=== PATIENT | female | born 1950 | race Caucasian/White ===

== ENCOUNTER 2024-03-17 16:52 | Inpatient (IN) | payer OTHER ==
[2024-03-17] MEDS ORDERED: MORPHINE 4 MG/ML SYR ONE (18:18)
[2024-03-17] MEDS ORDERED: KETOROLAC 30 MG/ML INJ ONE (18:18)
[2024-03-17] MEDS ORDERED: ONDANSETRON 4 MG/2 ML VIAL ONE (18:18)
[2024-03-17] MEDS ORDERED: NA CHLORIDE 0.9% 1,000 ML ONE (18:18)
[2024-03-17 18:34] LABS: Absolute Basophils 0.1 K/uL (0-0.5); Absolute Lymphocytes (CBC) 2.2 K/uL (0.7-4.9); Absolute Monocytes 0.6 K/uL (0.1-1.3); Absolute Neutrophil 14.8 K/uL (1.8-8.0); Basophils % 0.5 % (0-1.3); Eosinophils % 0.2 % (0-4.4); Hematocrit 43.1 % (36.0-45.0); Hemoglobin 14.2 g/dL (12.0-15.0); Lymphocytes % 12.2 % (15.3-44.8); MCHC 32.9 g/dL (32.0-36.0); MCV 94.3 fL (80-100); MPV 8.8 fL (7.6-11.3); Monocytes % 3.3 % (3.3-12.3); Neutrophils % 83.8 % (41.7-73.7); Platelets 282 thou/uL (152-406); RBC Red Blood Cell Count 4.57 M/uL (3.86-4.86); Red Cell Distribution Width 13.2 % (12.1-15.2)
--- NOTE | 2024-03-17 18:48 | RAD REPORT ---
Abdomen Exam Limited: 03/17/2024 6:37 PM CLINICAL HISTORY: ABD PAIN STUDY: Limited right upper quadrant ultrasound of abdomen. COMPARISON: None. FINDINGS: Liver: Limited evaluation but grossly unremarkable. Bile ducts: No intrahepatic or extrahepatic biliary ductal dilatation. Common bile duct measures 5 mm. Gallbladder: Stone in the region of the gallbladder neck. The gallbladder is modestly distended. No g allbladder wall thickening. Negative sonographic Monet sign. IMPRESSION: Cholelithiasis but no ancillary findings to suggest acute cholecystitis. A gallstone is present in th e region of the gallbladder neck.
[2024-03-17 19:04] LABS: Albumin 3.7 g/dL (3.4-5.0); Albumin/Globulin Ratio 0.9 (1.1-1.8); Anion Gap 14.1 mEq/L (5.0-15.0); Bilirubin Total 0.4 mg/dL (0.2-1.0); Globulin 3.9 g/dL (2.3-3.5); Potassium 4.1 mEq/L (3.5-5.1); Protein, Total 7.6 g/dL (6.4-8.2); Troponin High Sensitivity 55.7 pg/mL (<58.9)
--- NOTE | 2024-03-17 20:30 | RAD REPORT ---
EXAMINATION: CT ABDOMEN AND PELVIS WITH CONTRAST CLINICAL INDICATION: Female, 74 years old.ABD PAIN TECHNIQUE: CT abdomen and pelvis was performed, after the administration of IV contrast, as per depar tment protocol. Axial, sagittal and coronal reconstructions were obtained. One or more of the following dose reduction techniques were used: Automated exposure control, adjustment of the mA and/o r kV according to patient size, and/or iterative reconstruction. Unless otherwise specified, incidental findings do not require dedicated imaging follow-up. [id number]. COMPARISON: No prior exam. FINDINGS: LOWER CHEST: No acute process identified.No significant pericardial effusion. Small hiatal hernia. UPPER GI: No significant abnormality. LIVER: Hepatic steatosis. . Mild intrahepatic biliary duct dilatation. GALLBLADDER/BILE DUCTS: Dilated gallbladder with gallstone noted in the fundus measuring 14 mm. Dilat ed common bile duct measuring 8 mm.?No pericholecystic inflammatory changes. PANCREAS: Atrophy, but otherwise unremarkable. SPLEEN: Low-density splenic lesions that are most certainly benign. ADRENALS: Bilateral renal lesions which are indeterminate. The largest on the left measures 13 mm. Th e right adrenal gland is predominantly thickened. Portal Venous Contrast Phase CT, Incidental Adrenal mass < 1 cm and < 130 HU: Incidental sub-cm adrenal mass, probably benign. No follow-up imagi ng is recommended. These guidelines do not apply to patients younger than 18 years, patients with cancer, and patients with any clinical suspicion of a functioning adrenal lesion. Reference: JACR 20 Sep; 14(8):1038-44, JCAT 2015-May; 40(2):194-200 KIDNEYS AND URETERS: No hydronephrosis.No suspicious renal mass.Punctate stone lower pole right kidne y. ABDOMINAL AORTA AND OTHER VESSELS: Moderate atherosclerotic changes without aortic aneurysm. PERITONEUM: No abnormal free fluid. No free air. Surgical clips in the pelvis. LYMPH NODES: No pathologic lymphadenopathy. ABDOMINAL WALL: Unremarkable SMALL BOWEL/COLON: Small bowel has normal course and caliber. No colonic wall thickening or pericolon ic inflammatory changes.Mild to moderate formed stool in the rectum. No appendicitis. URINARY BLADDER: Underdistended but grossly unremarkable. REPRODUCTIVE ORGANS: No pathologic process. MUSCULOSKELETAL: No acute or suspicious osseous abnormality. Superior endplate deformity at L3 is fav ored chronic. ADDITIONAL FINDINGS: None. IMPRESSION: Distended gallbladder with cholelithiasis but no pericholecystic inflammatory changes. The common alberto e duct is mildly dilated measuring 8 millimeter. Correlate with LFTs. If abnormal, could consider MRCP to further evaluate.
[2024-03-17 20:44] LABS: Specific Gravity > 1.030 (1.005-1.030); Sqamous Epithelial <5 /HPF (None Seen); Urine Bacteria None Seen /HPF (<20); Urine Bilirubin NEGATIVE (Negative); Urine Blood Negative (Negative); Urine Clarity Extremely Turbid (Clear); Urine Color Yellow (Yellow); Urine Crystals Unidentified Few /HPF (None Seen); Urine Culture Reflex Order NOT NEEDED; Urine Glucose NEGATIVE (Negative); Urine Ketones 1+ (Negative); Urine Microscopic Reflex YN ORDER UMIC; Urine Mucus Slight /HPF (None Seen); Urine Nitrite NEGATIVE (Negative); Urine Protein TRACE (Negative); Urine RBC 21-50 /HPF (None Seen); Urine Urobilinogen Normal (Normal); Urine WBC <5 /HPF (<5); Urine Yeast (Budding) Moderate /HPF (None Seen)
--- NOTE | 2024-03-17 21:08 | ER ---
Nurse's Notes [facility] Name: Jasmyn Ny Age: 74 yrs Sex: Female : 1950 Arrival Date: 03/17/2024 Time: 16:52 Bed 18 Private MD: Diagnosis: Biliary colic, cholelithiasis, leukocytosis Presentation: 03/17 17:15 Chief complaint: Patient states: that at approx 1500 today she started having mid upper ap3 abdominal pain, nausea and vomiting. patient currently rates her pain as a 8/10 on the pain scale. Coronavirus screen: At this time, the client does not indicate any symptoms associated with coronavirus-19. Ebola Screen: No symptoms or risks identified at this time. Initial Sepsis Screen: Does the patient meet any 2 criteria? No. Patient's initial sepsis screen is negative. Does the patient have a suspected source of infection? No. Patient's initial sepsis screen is negative. Risk Assessment: Do you want to hurt yourself or someone else? Patient reports no desire to harm self or others. Onset of symptoms was March 17, 2024 at 15:00. 17:15 Method Of Arrival: Ambulatory ap3 17:15 Acuity: LIBERTAD 3 ap3 Triage Assessment: 17:17 General: Appears uncomfortable, Behavior is appropriate for age. Pain: Complains of ap3 pain in right upper quadrant and left upper quadrant Pain currently is 8 out of 10 on a pain scale. Pain began 1500 today. Neuro: Level of Consciousness is awake, alert, obeys commands, Oriented to person, place, time, situation, Appropriate for age. Cardiovascular: Patient's skin is warm and dry. Respiratory: Airway is patent Respiratory effort is even, unlabored. GI: Pt is actively vomiting Reports upper abdominal pain, nausea, vomiting. Historical: - Allergies: 17:16 No Known Allergies; ap3 - Home Meds: 17:17 Eliquis oral [Active]; Famotidine Oral [Active]; ap3 - PMHx: 17:17 Atrial fibrillation; Hypercholesterolemia; ap3 - Immunization history:: Adult Immunizations up to date. - Infectious Disease History:: Denies. - Family history:: not pertinent. - Social history:: Smoking status: Patient denies any tobacco usage or history of. Screenin:18 [facility] ED Fall Risk Assessment (Adult) History of falling in the last 3 months, ap3 including since admission No falls in past 3 months (0 pts) Confusion or Disorientation No (0 pts) Intoxicated or Sedated No (0 pts) Impaired Gait No (0 pts) Mobility Assist Device Used No (0 pt) Altered Elimination No (0 pt) Score/Fall Risk Level 0 - 2 = Low Risk Oriented to surroundings, Maintained a safe environment, Educated pt \T\ family on fall prevention, incl call for assistance when getting out of bed, Assessed \T\ reinforced patient's understanding of fall precautions, Hourly rounding (assess needs \T\ fall precautionary measures) done, Used ambulatory aids as needed (educated on \T\ assisted with), Used gait belt as appropriate. Abuse screen: Denies threats or abuse. Nutritional screening: No deficits noted. Tuberculosis screening: No symptoms or risk factors identified. 20:00 Exposure risk/Travel Screening: None identified. mt4 Assessment: 18:32 General: Appears in no apparent distress. uncomfortable, Behavior is calm, cooperative, ld1 appropriate for age. Pain: Complains of pain in right upper quadrant and left upper quadrant Pain does not radiate. Pain currently is 9 out of 10 on a pain scale. Quality of pain is described as pressure, throbbing, Pain began 1 hour ago. Is continuous. Neuro: Level of Consciousness is awake, alert, obeys commands, Oriented to person, place, time, situation. Cardiovascular: Capillary refill < 3 seconds Patient's skin is warm and dry. Respiratory: Airway is patent Respiratory effort is even, unlabored. GI: Abdomen is round non-distended, Bowel sounds present X 4 quads. Abd is soft Abdomen is tender to palpation in right upper quadrant and left upper quadrant Reports upper abdominal pain, nausea, vomiting. : No signs and/or symptoms were reported regarding the genitourinary system. EENT: No signs and/or symptoms were reported regarding the EENT system. Derm: No signs and/or symptoms reported regarding the dermatologic system. Musculoskeletal: No signs and/or symptoms reported regarding the musculoskeletal system. 19:31 Reassessment: patient was noted to be 85% Spo2 on room air. patient was placed on ap3 3liters o2 via nasal canula. provider notified. patient's SpO2 improved to 99%. 20:00 Reassessment: Patient is alert, oriented x 3, equal unlabored respirations, skin mt4 warm/dry/pink. 20:00 General: Appears in no apparent distress. comfortable. Pain: Complains of pain in mt4 abdomen. Neuro: Level of Consciousness is awake, alert, obeys commands, Oriented to person, place, time, situation, Barrel Dedenting Machine Operator are equal bilaterally Moves all extremities. Gait is steady, Speech is normal, Facial symmetry appears normal. Cardiovascular: Capillary refill < 3 seconds. Respiratory: Airway is patent Respiratory effort is even, unlabored, Respiratory pattern is regular, symmetrical. GI: Abdomen is non-distended, Abd is soft in right lower quadrant and left lower quadrant Abdomen is tender to palpation Reports lower abdominal pain, nausea. : Denies burning with urination. Musculoskeletal: Range of motion: intact in all extremities. 21:00 Reassessment: Patient and/or family updated on plan of care and expected duration. Pain mt4 level reassessed. Patient states symptoms have improved. 22:00 Reassessment: Patient and/or family updated on plan of care and expected duration. Pain mt4 level reassessed. 22:00 Reassessment:. Pain: Complains of pain in abdomen. GI: Reports lower abdominal pain. mt4 Musculoskeletal: Range of motion:. Vital Signs: 17:15 BP 123 / 79; Pulse 63; Resp 19; Temp 97.8(O); Pulse Ox 100% on R/A; Weight 62.6 kg; ap3 Height 5 ft. 4 in. ; Pain 8/10; 18:32 BP 162 / 78; Pulse 63; Resp 18; Pulse Ox 99% on R/A; Pain 9/10; ld1 19:30 Pulse Ox 85% on R/A; ap3 19:32 Pulse Ox 99% on 3 lpm NC; ap3 19:45 BP 148 / 67; Pulse 56; Resp 19; Pulse Ox 100% on R/A; mt4 21:31 BP 144 / 67; Pulse 62; Resp 18; Pulse Ox 100% ; br2 21:46 BP 133 / 56; Pulse 57; Resp 16; Temp 98(O); Pulse Ox 95% on R/A; Pain 4/10; mt4 22:55 BP 149 / 67; Pulse 87; Resp 18; Pulse Ox 91% ; br2 17:15 Body Mass Index 23.69 (62.60 kg, 162.56 cm) ap3 17:15 Pain Scale: Adult ap3 18:32 Pain Scale: Adult ld1 21:46 Pain Scale: Adult mt4 [place] Coma Score: 20:00 Eye Response: spontaneous(4). Motor Response: obeys commands(6). Verbal Response: mt4 oriented(5). Total: 15. ED Course: 16:55 Patient arrived in ED. al6 17:01 Lizandro To MD is Attending Physician. rt 17:16 Triage completed. ap3 17:19 Arm band placed on left wrist. ap3 18:32 Patient has correct armband on for positive identification. Placed in gown. Bed in low ld1 position. Call light in reach. Side rails up X2. youth nutritional monitor on. Pulse ox on. NIBP on. Door closed. Noise minimized. Warm blanket given. 18:32 No provider procedures requiring assistance completed. Inserted saline lock: 20 gauge ld1 in right antecubital area, using aseptic technique. Blood collected. Flushed with 10 mL NS. 18:39 US Abdomen Limited In Process Unspecified. EDMS 19:29 Aleah Branch, RN is Primary Nurse. mt4 20:00 No apparent distress. Resting quietly. mt4 20:00 Provided Education on: pain medication. youth nutritional monitor on. Pulse ox on. NIBP on. Door mt4 closed. Lights dimmed. Warm blanket given. Pillow given. Verbal reassurance given. Patient is placed in psych hold. Assisted to bathroom. 20:00 Patient maintains SpO2 saturation greater than 95% on room air. mt4 20:14 CT Abd/Pelvis - IV Contrast Only In Process Unspecified. EDMS 20:22 Attending Physician role handed off by Lizandro To MD sp3 20:22 Uli Quigley MD is Attending Physician. sp3 21:00 No apparent distress. Resting quietly. mt4 21:00 Call light in reach. Side rails up X 1. Door closed. Lights dimmed. Warm blanket given. mt4 Pillow given. Verbal reassurance given. Patient is placed in psych hold. Patient is placed in psych hold. 21:07 Renato Araujo MD is Hospitalizing Provider. sp3 22:00 No apparent distress. Resting quietly. mt4 22:00 Door closed. Lights dimmed. Warm blanket given. Pillow given. Verbal reassurance given. mt4 03/18 06:40 First set of blood cultures drawn by me. oe 06:57 Second set of blood cultures drawn by me. oe 06:58 Inserted saline lock: 22 gauge in left hand, using aseptic technique. Blood collected. oe Flushed with 10 mL NS. 11:21 Primary Nurse role handed off by Aleah Branch, RN jl7 12:04 Patient admitted, IV remains in place. intact, No redness/swelling at site. jl7 Administered Medications: 03/17 18:31 Drug: NS 0.9% IV 1000 ml IV at 1 bolus Per protocol; to be given as a bolus over 60 ld1 minutes Route: IV; Rate: 1 bolus; Site: right antecubital; 21:55 Follow up: Response: No adverse reaction; IV Status: Completed infusion; IV Intake: mt4 1000ml 18:32 Drug: TORadol - Ketorolac IVP 15 mg IVP once Route: IVP; Site: right antecubital; ld1 21:56 Follow up: Response: No adverse reaction mt4 18:32 Drug: Ondansetron IVP 4 mg IVP once; over 2 minutes Route: IVP; Site: right antecubital;ld1 21:56 Follow up: Response: No adverse reaction mt4 18:32 Drug: morphine IVP or IV 4 mg IVP once over 4 mins Route: IVP; Infused Over: 4 mins; ld1 Site: right antecubital; 21:56 Follow up: Response: No adverse reaction mt4 21:45 Drug: Piperacillin-Tazobactam IVPB 3.375 grams IVPB once over 60 mins; (mix in NS 100 mt4 mL) Route: IVPB; Infused Over: 60 mins; Site: right antecubital; 22:52 Drug: HYDROmorphone IVP 1 mg IVP once Route: IVP; Site: right antecubital; br2 03/18 12:02 Not Given (administered in [facility]): hydromorphone1 mg IVP once jl7 Medication: 03/17 20:00 VIS not applicable for this client. mt4 Intake: 21:55 IV: 1000ml; Total: 1000ml. mt4 Outcome: 21:08 Decision to Hospitalize by Provider. sp3 03/18 07:00 Admitted to ER Hold. Please see [facility] for further documentation. jl7 Condition: stable Discharge instructions given to patient, family, Instructed on the need for admit, Demonstrated understanding of instructions, 10:31 Patient left the ED. bd 13:39 Patient left the ED. jl7 Signatures: Dispatcher [employer] EDMS Justine Loo [place] oe Leal, Jahala, RN RN jl7 Noemy Butler RN RN ap3 Mariia Cardenas RN RN ld1 Uli Quigley MD MD sp3 Lizandro To MD MD rt Aleah Branch RN RN mt4 Deanne Somers RN RN br2 Loraine Collins6
--- NOTE | 2024-03-17 21:08 | EDPHYS ---
Physician Documentation [facility] Name: Jasmyn Ny Age: 74 yrs Sex: Female : 1950 Arrival Date: 03/17/2024 Time: 16:52 Bed 18 Private MD: ED Physician Uli Quigley HPI: 03/17 17:38 This 74 yrs old Female presents to ER via Ambulatory with complaints of Abdominal Pain, rt Vomiting. 17:38 Patient presents to the ED with an acute onset of epigastric pain rating to the right rt upper quadrant with associated nausea, vomiting starting this afternoon at about 3. Has had similar episodes with gallstones. Denies other acute complaints at this time, symptoms are moderate in severity, no other aggravating or alleviating factors.. Historical: - Allergies: 17:16 No Known Allergies; ap3 - Home Meds: 17:17 Eliquis oral [Active]; Famotidine Oral [Active]; ap3 - PMHx: 17:17 Atrial fibrillation; Hypercholesterolemia; ap3 - Immunization history:: Adult Immunizations up to date. - Infectious Disease History:: Denies. - Family history:: not pertinent. - Social history:: Smoking status: Patient denies any tobacco usage or history of. ROS: 17:38 Constitutional: Negative for fever, chills, and weight loss, Cardiovascular: Negative rt for chest pain, palpitations, and edema, Respiratory: Negative for shortness of breath, cough, wheezing, and pleuritic chest pain, MS/Extremity: Negative for injury and deformity, Skin: Negative for injury, rash, and discoloration, Neuro: Negative for headache, weakness, numbness, tingling, and seizure, 17:38 Abdomen/GI: Positive for abdominal pain, nausea and vomiting, Exam: 17:38 Constitutional: This is a well developed, well nourished patient who is awake, alert, rt and in no acute distress. Head/Face: Normocephalic, atraumatic. Chest/axilla: Normal chest wall appearance and motion. Nontender with no deformity. No lesions are appreciated. Cardiovascular: Regular rate and rhythm with a normal S1 and S2. No gallops, murmurs, or rubs. Normal PMI, no JVD. No pulse deficits. Respiratory: Lungs have equal breath sounds bilaterally, clear to auscultation and percussion. No rales, rhonchi or wheezes noted. No increased work of breathing, no retractions or nasal flaring. Skin: Warm, dry with normal turgor. Normal color with no rashes, no lesions, and no evidence of cellulitis. MS/ Extremity: Pulses equal, no cyanosis. Neurovascular intact. Full, normal range of motion. Neuro: Awake and alert, GCS 15, oriented to person, place, time, and situation. Cranial nerves II-XII grossly intact. Motor strength 5/5 in all extremities. Sensory grossly intact. Cerebellar exam normal. Normal gait. 17:38 Abdomen/GI: Tenderness to the epigastrium with mild guarding, no rebound, distention, 18:20 ECG was reviewed by the Attending Physician. rt Vital Signs: 17:15 BP 123 / 79; Pulse 63; Resp 19; Temp 97.8(O); Pulse Ox 100% on R/A; Weight 62.6 kg; ap3 Height 5 ft. 4 in. ; Pain 8/10; 18:32 BP 162 / 78; Pulse 63; Resp 18; Pulse Ox 99% on R/A; Pain 9/10; ld1 19:30 Pulse Ox 85% on R/A; ap3 19:32 Pulse Ox 99% on 3 lpm NC; ap3 19:45 BP 148 / 67; Pulse 56; Resp 19; Pulse Ox 100% on R/A; mt4 21:31 BP 144 / 67; Pulse 62; Resp 18; Pulse Ox 100% ; br2 21:46 BP 133 / 56; Pulse 57; Resp 16; Temp 98(O); Pulse Ox 95% on R/A; Pain 4/10; mt4 22:55 BP 149 / 67; Pulse 87; Resp 18; Pulse Ox 91% ; br2 17:15 Body Mass Index 23.69 (62.60 kg, 162.56 cm) ap3 17:15 Pain Scale: Adult ap3 18:32 Pain Scale: Adult ld1 21:46 Pain Scale: Adult mt4 [place] Coma Score: 20:00 Eye Response: spontaneous(4). Motor Response: obeys commands(6). Verbal Response: mt4 oriented(5). Total: 15. MDM: 17:26 Medical Screening Exam initiated rt 20:37 Data reviewed: vital signs, nurses notes, lab test result(s), radiologic studies. ED sp3 course: 74-year-old female with history of atrial fibrillation signed out to me by Dr. To with diffuse abdominal pain presentation now with 17,000 white count with left shift and ultrasound and CT abdomen pelvis demonstrating cholelithiasis without any evidence of cholecystitis. LFTs are normal. UA is pending. Disposition pending workup and patient course and reevaluation.. 21:05 ED course: Given elevated WBC count and multiple quadrant pain with distended sp3 gallbladder, I believe this is most likely gallbladder in origin. LFTs are normal. We will admit patient and general surgery will consult in the morning. I have spoken with Dr. Guevara regarding the case. We will admit to medicine for medical clearance. We will hold Eliquis to keep patient n.p.o. after midnight.. 03/17 17:26 Order name: CBC with Diff; Complete Time: 18:49 rt 03/17 17:26 Order name: CMP; Complete Time: 19:47 rt 03/17 17:26 Order name: Lipase; Complete Time: 19:47 rt 03/17 17:26 Order name: Urinalysis w/ reflexes; Complete Time: 20:49 rt 03/17 17:26 Order name: Troponin High Sensitivity; Complete Time: 19:47 rt 03/17 21:25 Order name: Urinalysis w/ reflexes EDVT 03/17 21:25 Order name: CBC with Automated Diff EDMS 03/17 21:25 Order name: CBC with Automated Diff EDVT 03/17 21:25 Order name: Comprehensive Metabolic Panel EDVT 03/17 21:25 Order name: Comprehensive Metabolic Panel; Complete Time: 07:10 EDVT 03/17 21:25 Order name: Troponin High Sensitivity EDVT 03/17 21:25 Order name: Troponin High Sensitivity [facility] 03/17 21:25 Order name: Troponin High Sensitivity; Complete Time: 07:10 EDVT 03/17 21:25 Order name: Troponin High Sensitivity [facility] 03/18 06:17 Order name: LDH 03/18 06:17 Order name: Lactate w/ 2H reflex if indic. 1 03/18 06:17 Order name: Blood Culture Adult (2) 03/18 07:20 Order name: Lactic Dehydrogenase; Complete Time: 07:31 EDVT 03/18 07:24 Order name: Lactate w/ 2H reflex if indic.; Complete Time: 07:31 EDMS 03/18 08:51 Order name: Manual Differential EDMS 03/18 09:03 Order name: Protime (+INR) EDMS 03/17 17:26 Order name: CT Abd/Pelvis - IV Contrast Only; Complete Time: 20:35 rt 03/17 17:26 Order name: US Abdomen Limited; Complete Time: 18:49 rt 03/18 07:10 Order name: RAD; Complete Time: 07:31 EDMS 03/17 17:26 Order name: IV Saline Lock; Complete Time: 18:31 rt 03/17 17:26 Order name: Labs collected and sent; Complete Time: 18:31 rt 03/17 17:26 Order name: EKG - Nurse/Tech; Complete Time: 18:16 rt 03/17 21:06 Order name: NPO; Complete Time: 21:45 sp3 EC:20 Rate is 62 beats/min. Rhythm is regular, Normal Sinus Rhythm with No ectopy. QRS [place] rt is Normal. [place] interval is normal. QRS interval is normal. QT interval is normal. No Q waves. T waves are Normal. No ST changes noted. Administered Medications: 18:31 Drug: NS 0.9% IV 1000 ml IV at 1 bolus Per protocol; to be given as a bolus over 60 ld1 minutes Route: IV; Rate: 1 bolus; Site: right antecubital; 21:55 Follow up: Response: No adverse reaction; IV Status: Completed infusion; IV Intake: mt4 1000ml 18:32 Drug: TORadol - Ketorolac IVP 15 mg IVP once Route: IVP; Site: right antecubital; ld1 21:56 Follow up: Response: No adverse reaction mt4 18:32 Drug: Ondansetron IVP 4 mg IVP once; over 2 minutes Route: IVP; Site: right antecubital;ld1 21:56 Follow up: Response: No adverse reaction mt4 18:32 Drug: morphine IVP or IV 4 mg IVP once over 4 mins Route: IVP; Infused Over: 4 mins; ld1 Site: right antecubital; 21:56 Follow up: Response: No adverse reaction mt4 21:45 Drug: Piperacillin-Tazobactam IVPB 3.375 grams IVPB once over 60 mins; (mix in NS 100 mt4 mL) Route: IVPB; Infused Over: 60 mins; Site: right antecubital; 22:52 Drug: HYDROmorphone IVP 1 mg IVP once Route: IVP; Site: right antecubital; br2 03/18 12:02 Not Given (administered in [facility]): hydromorphone1 mg IVP once jl7 Disposition Summary: 03/17/24 21:08 Hospitalization Ordered Notes: Hospitalization Status: Inpatient Admission sp3 Provider: Renato Araujo sp3 Condition: Stable sp3 Problem: new sp3 Symptoms: have worsened sp3 Bed/Room Type: Standard sp3 Location: [facility] ER HOLD(03/17/24 23:14) vc1 Room Assignment: ERHOLD-(03/17/24 23:14) vc1 Diagnosis - Biliary colic, cholelithiasis, leukocytosis sp3 Forms: - Medication Reconciliation Form sp3 - SBAR form sp3 - Leadership Thank You Letter sp3 Signatures: Dispatcher [employer] EDCathy Vick FNP-C TERRITORY DEVELOPMENT MANAGER-[employer] Nikita Pelaez MD MD rn Prokisch, Amanda RN RN ap3 Mariia Cardenas RN RN ld1 Uli Quigley MD MD sp3 Alondra Tran RN RN vc1 Lizandro To MD MD rt Aleah Branch RN RN mt4 Deanne Somers RN RN br2 Nella Pal RN jl7 Corrections: (The following items were deleted from the chart) 03/17 17:26 17:26 CBC+H.LAB.BRZ ordered. EDMS EDMS 17:26 17:26 COMPREHENSIVE METABOLIC PANEL+C.LAB.BRZ ordered. EDMS EDMS 17:26 17:26 LIPASE+C.LAB.BRZ ordered. EDMS EDMS 17:26 17:26 Urinalysis+U.LAB.BRZ ordered. EDMS EDMS 17:26 17:26 Troponin High Sensitivity+C.LAB.BRZ ordered. EDMS EDMS 17:27 17:26 Abdomen Pelvis W Con+CT.RAD.BRZ ordered. EDMS EDMS 17:27 17:27 Abdomen Limited+US.RAD.BRZ ordered. EDMS EDMS 23:14 21:08 Telemetry/Medrg ([facility]) sp3 vc1 23:14 21:08 sp3 vc1
--- NOTE | 2024-03-17 21:16 | P.HP ---
Certification for Inpatient Patient admitted to: Inpatient With expected LOS: >2 Midnights Practitioner: I am a practitioner with admitting privileges, knowledge of patient current condition, hospital course, and medical plan of care. Services: Services provided to patient in accordance with Admission requirements found in Title 42 Section 412.3 of the Code of Federal Regulations Patient History Date of Service: 03/18/24 Reason for admission: Abdominal Pain History of Present Illness: 74 yrs old Female with past medical history of atrial fibrillation on Eliquis, GERD, hyperlipidemia who was brought to ER with complaints of abdominal pain and nausea and vomiting. Patient started having acute onset of epigastric pain right upper quadrant, sharp, 6 out of 10 in severity. Associated with nausea and vomiting. Pain was progressively getting worse. She used to have history of gallstones. Pain is similar to the biliary colic she used to have previously. Patient denies any fever or chills. Denies any chest pain. No history of diarrhea. No sick contacts. Patient was assessed in the ER and is admitted for further management of acute cholecystitis Allergies No Known Allergies Allergy (Unverified 03/17/24 23:14) Home medications list reviewed: Yes - Past Medical/Surgical History Past Medical History: Reviewed- Non-Contributory -: [employer] -: HTN Past Surgical History: Reviewed- Non-Contributory - Family History Family History: Reviewed- Non-Contributory - Social History Smoking Status: Never smoker Review of Systems 10-point ROS is otherwise unremarkable Physical Examination - Vital Signs Temperature: 98.2 F Blood Pressure: 122/68 Pulse: 76 Respirations: 18 Pulse Ox (%): 94 - Physical Exam General: Alert, In no apparent distress, Oriented x3 HEENT: Atraumatic, Normocephalic Neck: Supple Respiratory: Clear to auscultation bilaterally, Normal air movement Cardiovascular: Regular rate/rhythm, Normal S1 S2 Capillary refill: <2 Seconds Gastrointestinal: W/out hepatosplenomegaly, Tenderness Musculoskeletal: No clubbing, No swelling Integumentary: No rashes Neurological: Normal speech, Normal strength at 5/5 x4 extr, Cranial nerves 3-12 intact, Normal reflexes 2+, Normal affect Lymphatics: No axilla or inguinal lymphadenopathy - Studies Laboratory Data (last 24 hrs) 03/17/24 03/17/24 18:26 18:26 WBC 17.70 H Hgb 14.2 Hct 43.1 Plt Count 282 Sodium 137 Potassium 4.1 BUN 15 Creatinine 0.86 Glucose 156 H Total Bilirubin 0.4 AST 18 ALT 28 Alkaline Phosphatase 123 H Lipase 23 Assessment and Plan - Plan Acute cholecystitis Leukocytosis Started on IV antibiotic CT findings noted Pain control Started on IV fluids Keep n.p.o. for now Surgery consulted History of atrial fibrillation Will hold Eliquis for now GI/DVT prophylaxis Advanced directive full code Discharge Plan: Home Plan to discharge in: 48 Hours - Advance Directives Does patient have a Living Will: No Does patient have a Durable POA for Healthcare: No - Code Status/Comfort Care Code Status: Full Code Time Spent Managing Pts Care (In Minutes): 48
[2024-03-17] MEDS ORDERED: ACETAMINOPHEN 325 MG TABLET PO PRN (21:19)
[2024-03-17] MEDS ORDERED: PIPERACIL/TAZO 3.375 GM VIAL IV ONE (21:19)
[2024-03-17] MEDS ORDERED: NA CHLORIDE 0.9% 100 ML ONE (21:19)
[2024-03-17] MEDS ORDERED: HYDROMORPHONE HCL 1 MG/ML INJ ONE (22:48)
[2024-03-18] MEDS: PIPER TAZO 3.375 GM in NA CHLORIDE 0.9% 100 ML IV SCH ×2 (01:00→05:00)
[2024-03-18] MEDS ORDERED: NA CHLORIDE 0.9% 1,000 ML ONE (03:26)
[2024-03-18] MEDS: MORPHINE 2 MG/ML SYR IV PRN (04:51)
[2024-03-18] MEDS ORDERED: MORPHINE 2 MG/ML SYR ONE (04:56)
[2024-03-18 05:26] LABS: Absolute Basophils 0.4 K/uL (0-0.5); Absolute Lymphocytes (CBC) 1.6 K/uL (0.7-4.9); Absolute Monocytes 1.6 K/uL (0.1-1.3); Absolute Neutrophil 23.9 K/uL (1.8-8.0); Basophils % 1.4 % (0-1.3); Hematocrit 40.2 % (36.0-45.0); Hemoglobin 13.3 g/dL (12.0-15.0); Lymphocytes % 5.8 % (15.3-44.8); MCH 31.1 pg (27.0-35.0); MCV 94.4 fL (80-100); MPV 9.1 fL (7.6-11.3); Monocytes % 5.7 % (3.3-12.3); Neutrophils % 87.1 % (41.7-73.7); Platelets 264 thou/uL (152-406); RBC Red Blood Cell Count 4.26 M/uL (3.86-4.86); Red Cell Distribution Width 13.2 % (12.1-15.2)
[2024-03-18 05:42] LABS: Albumin 3.1 g/dL (3.4-5.0); Albumin/Globulin Ratio 0.9 (1.1-1.8); Anion Gap 11.3 mEq/L (5.0-15.0); Bilirubin Total 0.7 mg/dL (0.2-1.0); Globulin 3.3 g/dL (2.3-3.5); Potassium 4.3 mEq/L (3.5-5.1); Protein, Total 6.4 g/dL (6.4-8.2)
[2024-03-18 05:48] LABS: Troponin High Sensitivity 1462.4 pg/mL (<58.9)
--- NOTE | 2024-03-18 06:31 | P.PN ---
Date of Service: 03/18/24 74 yrs old Female with past medical history of atrial fibrillation on Eliquis, GERD, hyperlipidemia who was brought to ER with complaints of abdominal pain and nausea and vomiting. Patient started having acute onset of epigastric pain right upper quadrant, sharp, 6 out of 10 in severity. Associated with nausea and vomiting. Pain was progressively getting worse. She used to have history of gallstones. Pain is similar to the biliary colic she used to have previously. Patient denies any fever or chills. Denies any chest pain. No history of diarrhea. No sick contacts. Subjective Continued nausea, pt states her pain started suddenly at 3pm yesterday at suprapubic area and then moved up to below bilateral breasts, continued nausea, denies chest pain. Review of Systems 10-point ROS is otherwise unremarkable Physical Examination - Vital Signs reviewed: no hypotension, no a. fib, afebrile - Physical Exam General: Alert, In no apparent distress, Oriented x3 HEENT: Atraumatic, Normocephalic Neck: Supple Respiratory: Clear to auscultation bilaterally, Normal air movement Cardiovascular: Regular rate/rhythm, Normal S1 S2 Capillary refill: <2 Seconds Gastrointestinal: W/out hepatosplenomegaly, Tenderness generalized, decreased bowel sounds with heartbeat auscultated in RUQ Musculoskeletal: No clubbing, No swelling Integumentary: No rashes Neurological: Normal speech, Normal strength at 5/5 x4 extr, Cranial nerves 3-12 intact, Normal reflexes 2+, Normal affect Lymphatics: No axilla or inguinal lymphadenopathy - Studies Laboratory Data (last 24 hrs) 03/17/24 03/17/24 18:26 18:26 WBC 17.70 H Hgb 14.2 Hct 43.1 Plt Count 282 Sodium 137 Potassium 4.1 BUN 15 Creatinine 0.86 Glucose 156 H Total Bilirubin 0.4 AST 18 ALT 28 Alkaline Phosphatase 123 H Lipase 23 Assessment and Plan - Plan Acute cholecystitis Leukocytosis Started on IV antibiotic CT findings noted Pain control Started on IV fluids Keep n.p.o. for now Surgery consulted History of atrial fibrillation Will hold Eliquis for now NSTEMI (03/18/24) rec'd pt this am with repeat trop from normal to greater than 1465 repeat CBC shows marked leukocytosis from 17.7. to 27.5 CT from last pm without noted AA Repeat EKG (normal sinus last pm) stat LDH, Lactate, Blood cultures, and second PIV ordered stat Cardiology consultation/notification Heparin drip GI/DVT prophylaxis Advanced directive full code
[2024-03-18] MEDS ORDERED: HEPARIN/D5W 25,000 UNIT/500 ML BAG IV SCH (07:00)
--- NOTE | 2024-03-18 07:10 | RAD REPORT ---
EXAM: Chest Single View HISTORY: chest pain COMPARISON: CT abdomen 03/17/2024 FINDINGS: LUNGS/PLEURA: Coarsened pulmonary interstitium. No definite consolidation. MEDIASTINUM: The mediastinal silhouette is within normal limits. CARDIAC: The cardiac silhouette is within normal limits. UPPER ABDOMEN: No significant abnormality. BONES: No acute abnormality. LINES/TUBES/OTHER: N/A IMPRESSION: Coarsened pulmonary interstitium without definite acute process otherwise. The lung bases were clear on the chest radiograph from yesterday.
[2024-03-18] MEDS ORDERED: HYDROMORPHONE HCL 1 MG/ML INJ ONE (07:38)
[2024-03-18] MEDS: HYDROMORPHONE HCL 1 MG/ML INJ IV ONE (07:45)
[2024-03-18] MEDS: PNEUMOCOCCAL VACCINE 0.5 ML IMVAC ONE (08:00)
[2024-03-18] MEDS ORDERED: HEPARIN/D5W 25,000 UNIT/500 ML BAG IV ONE (08:24)
[2024-03-18 08:50] LABS: Atypical Lymphocytes 1 %; Blood Morphology Comment NOT SEEN (NOT SEEN); Differential Total Cells Count 100; Lymphocytes 3 % (15-42); Monocytes 8 % (0-10); Platelet Estimate ADEQ; Segmented Neutrophils 88 % (40-80)
[2024-03-18 09:03] LABS: PT Prothrombin Time 13.3 SECONDS (9.4-12.5); Protime INR 1.27
[2024-03-18] MEDS: NA CHLORIDE 0.9% 500 ML ONE (09:33)
--- NOTE | 2024-03-18 10:06 | P.CNS ---
Date of Consult: 03/18/24 Chief Complaint: Abdominal Pain History of Present Illness: Patient with PMH of atrial fibrillation, presented with RUQ abdominal pain, nausea and vomiting, denies chest pain, no palpitations, no syncope, no SOB. Allergies No Known Allergies Allergy (Unverified 03/17/24 23:14) Home medications list reviewed: Yes - Past Medical/Surgical History Diabetic: No -: [employer] -: HTN - Social History Alcohol use: No CD- Drugs: No Caffeine use: Yes Place of Residence: Home Review of Systems 10-point ROS is otherwise unremarkable Physical Examination Temp Pulse Resp BP Pulse Ox 98 F 64 14 103/53 L 98 03/18/24 04:00 03/18/24 08:00 03/18/24 08:00 03/18/24 08:00 03/18/24 08:00 General: Alert, In no apparent distress HEENT: Atraumatic, PERRLA, Mucous membr. moist/pink, EOMI, Sclerae nonicteric Neck: Supple, 2+ carotid pulse no bruit, No LAD, Without JVD or thyroid abnormality Respiratory: Clear to auscultation bilaterally, Normal air movement Cardiovascular: Regular rate/rhythm, Normal S1 S2 Gastrointestinal: Normal bowel sounds, No tenderness Musculoskeletal: No tenderness Integumentary: No rashes Neurological: Normal gait, Normal speech, Normal tone, Normal affect Lymphatics: No axilla or inguinal lymphadenopathy Laboratory Data (last 24 hrs) 03/17/24 03/17/24 18:26 18:26 WBC 17.70 H Hgb 14.2 Hct 43.1 Plt Count 282 Sodium 137 Potassium 4.1 BUN 15 Creatinine 0.86 Glucose 156 H Total Bilirubin 0.4 AST 18 ALT 28 Alkaline Phosphatase 123 H Lipase 23 - Problems (1) NSTEMI (non-ST elevated myocardial infarction) Current Visit: Yes Status: Acute Plan: patient troponin is elevated, patient is presenting with epigastric pain, EKG no significant ST-T wave changes. NPO for coronary angiogram ASA 81 mg daily Heparin drip get echo (2) Atrial fibrillation Current Visit: Yes Status: Acute Plan: Patient is currently in sinus rhythm holding eliquis for coronary angiogram and possible surgery. continue to monitor on tele (3) Cholecystitis Current Visit: Yes Status: Acute Plan: per surgery team.
[2024-03-18] MEDS ORDERED: HEPARIN 10,000 UNIT/10 ML VIAL IV ONE (10:12)
[2024-03-18] MEDS ORDERED: CLOPIDOGREL 75 MG TABLET ONE (10:12)
[2024-03-18] MEDS ORDERED: MIDAZOLAM HCL 2 MG/2 ML INJ ONE (10:12)
[2024-03-18] MEDS ORDERED: HEPA 1000U/500MLS 2,000 UNIT/1,000 ML BAG IV ONE (10:12)
[2024-03-18] MEDS ORDERED: LIDOCAINE 1% 20 ML MDV ONE (10:12)
[2024-03-18] MEDS ORDERED: ATROPINE SULF 1 MG/10 ML SYR IV ONE (10:12)
[2024-03-18] MEDS ORDERED: ASPIRIN 325 MG TAB ONE (10:13)
[2024-03-18] MEDS ORDERED: HEPARIN 5000 UNIT/ML 1 ML VIAL ONE (10:13)
[2024-03-18] MEDS ORDERED: FENTANYL CITR 100 MCG/2 ML ONE ×3 (10:13→17:09)
[2024-03-18] MEDS ORDERED: TICAGRELOR 90 MG TABLET PO ONE (10:13)
[2024-03-18] MEDS ORDERED: ONDANSETRON 4 MG/2 ML VIAL ONE (10:56)
[2024-03-18] MEDS: Ringers Lactate 1,000 ML IV ONE (14:30)
[2024-03-18] MEDS: ONDANSETRON 4 MG/2 ML VIAL ONE ×2 (14:56→15:00)
[2024-03-18] MEDS ORDERED: ROCURONIUM 50 MG/5 ML VIAL IV ONE (15:00)
[2024-03-18] MEDS ORDERED: LIDOCAINE 2% MPF 5 ML VIAL ONE (15:00)
[2024-03-18] MEDS ORDERED: propofoL 200 MG/20 ML VIAL IV ONE ×2 (15:01→17:38)
[2024-03-18] MEDS: SUCCINYLCHOLINE 20 MG/ML (10 ML) IV ONE (15:21)
[2024-03-18] MEDS: SUGAMMADEX SODIUM 200 MG/2 ML VIAL IV ONE (15:21)
[2024-03-18] MEDS: PROMETHAZINE INJ 25 MG/ML AMP ONE (15:36)
[2024-03-18] MEDS ORDERED: EPHEDRINE SULF 50 MG/ML VIAL ONE (16:30)
[2024-03-18] MEDS ORDERED: dexAMETHasone 4 MG/ML VIAL ONE (16:34)
--- NOTE | 2024-03-18 17:58 | P.OP ---
Preoperative diagnosis: Acute on chronic cholecystitis with cholelithiasis Postoperative diagnosis: the same, with partial gangrene of the gallbladder Primary procedure: Laparoscopic cholecystectomy Secondary procedure: Intraoperative cholangiogram Anesthesia: General Estimated blood loss: Less than 20 cc Specimen: 1 gallbladder and contents Operative Technique: The patient brought the operating room and placed supine on the table. After the induction of adequate general endotracheal anesthesia, the area of the abdomen was prepped with a DuraPrep solution, and she was draped in the usual aseptic manner. A subumbilical incision was made. This is brought down through the skin and subcutaneous tissue. The Visiport was now used to enter the peritoneal cavity and created pneumoperitoneum to approximately 12 mmHg. The patient was then placed in reverse Trendelenburg on the table airplane to the left. We could visualize the right upper quadrant. We could see a markedly inflamed gallbladder that had thick omental adhesions to the serosal surface of the gallbladder. It was also obvious we could see there was some full-thickness loss of the gallbladder itself with yellow and green staining starting to come through the actual wall of the gallbladder. The contents of the gallbladder were now aspirated. We encountered dark count of bloody fluid from the gallbladder itself. A grasper was now ably placed on the fundus of the gallbladder and another down on the body. We continued our dissection of these adhesions to the serosal surface of the gallbladder. They were cleared using both electrocautery, gentle traction, and a grasper to gently pull them off and staying in plane. The Jones's pouch was now identified. We transferred the grasper from the fundus down to the mid body and the other 1 down towards Jones's pouch. Applying lateral traction we were able to gently expose both the cystic duct and artery. A clip was placed between the gallbladder and the cystic duct. An opening was made into the cystic duct through which we obtained a normal intraoperative cholangiogram the cholangiocatheter was now removed. Clips were placed on the distal portion of the cystic duct. The cystic artery have identified was clipped in the usual way and divided. The gallbladder was now dissected free from the liver bed. It was noted to be a lot of edema around the actual gallbladder itself. Further areas of partial necrosis were seen on the posterior wall. The gallbladder was now fully detached from the liver, and placed into an Endo Catch. We brought out through the umbilical trocar site. It was necessary to cut the skin as the gallbladder itself was very large and edematous with stones inside. This having been done we turned our attention back to the peritoneal cavity. The umbilical trocar site was now reapproximated using interrupted sutures placed using the Endo Close. 4 were used in total to approximate the fascial defect. Looking back up over the liver we could see that there was some irrigating fluid that was aspirated from the peritoneal cavity. The liver bed and gallbladder fossa. We had adequate hemostasis. The omentum was placed back to have underneath the liver. Once again further inspection revealed no other gross pathology at this time. The The sutures having been tied, the trocars removed, the pneumoperitoneum was now collapsed. Brittany were placed on the skin. It was necessary to widen the skin aperture at the umbilicus to look at the gallbladder to come out. The skin was approximated back loosely to close the area over. At the end of the procedure the patient was in a stable condition when sent to the recovery room. Needle sponge instrument count were correct. No drains were placed.
[2024-03-18] MEDS: NA CHLORIDE 0.9% 1,000 ML IV SCH (20:04)
[2024-03-18] MEDS: ONDANSETRON 4 MG/2 ML VIAL IV PRN (20:10)
--- NOTE | 2024-03-18 21:05 | RAD REPORT ---
EXAM: Fluoroscopy use, Cholangiogram Oper-Xray Or HISTORY: [facility] COMPARISON: None FINDINGS: A total of 13 images were sent to PACS, during a fluoroscopically guided intraoperative cho langiogram. No radiologist was involved in protocoling or performance of the study, and no radiologist was present for the duration of the procedure. No interpretation of the saved images will be provided. Total fluoroscopy time: 0.5 minutes. IMPRESSION: Documentation of fluoroscopy use as above.
--- NOTE | 2024-03-18 22:58 | OP ---
Date of Procedure: 03/18/2024 Surgeon: Daniel Brown Procedures Performed: 1. Left heart catheterization. 2. Selective coronary angiogram. 3. LV angiogram. Indications For Procedure: [id number] SC, cholecystitis. Complications: None. Estimated Blood Loss: Less than 50 cc. Access: Right radial, closed by TR band. Sedation Time: 20 minutes with 1 of Versed and 25 fentanyl. Description Of Procedure: After risks, benefits, and alternatives were explained to the patient, the patient agreed to proceed with procedure and signed informed consent. The patient was brought back to the laboratory machinist, prepped and draped in sterile fashion. Time-out was performed. Sedation was admini stered. Next, right radial access was obtained using ultrasound-guided micropuncture technique. Tig er 4 catheter was advanced over a J-wire. Selective angiogram was done using the same catheter. The n after that, catheter was pushed into the LV cavity, that was exchanged for a pigtail catheter, wher e LVEDP and LV angiogram was performed. At the end of procedure, catheter was removed over a J-wire. Sheath was removed. TR band was applied. Hemostasis achieved. The patient was moved back to [facility] in stable condition. Findings: 1. Left main, normal. 2. LAD, normal with mid mild intramyocardial bridge, then mild luminal irregularities. 3. Left circ, normal. 4. RCA, normal. 5. LVEDP 6 mmHg. 6. LV gram shows normal wall motions with ejection fraction of 60% to 65%. Assessment: 1. Normal coronaries with mid LAD mild intramyocardial bridge. 2. Normal LV wall motions with normal ejection fraction. Plan: Will be to continue medical management. VEDA/PATRICIA Voice ID: [id number] Report ID: [id number]
[2024-03-19 06:38] LABS: Absolute Basophils 0.1 K/uL (0-0.5); Absolute Lymphocytes (CBC) 0.9 K/uL (0.7-4.9); Absolute Monocytes 1.6 K/uL (0.1-1.3); Absolute Neutrophil 27.2 K/uL (1.8-8.0); Basophils % 0.2 % (0-1.3); Hematocrit 36.3 % (36.0-45.0); Hemoglobin 11.8 g/dL (12.0-15.0); Lymphocytes % 3.2 % (15.3-44.8); MCH 30.8 pg (27.0-35.0); MCHC 32.5 g/dL (32.0-36.0); MCV 94.6 fL (80-100); MPV 9.2 fL (7.6-11.3); Monocytes % 5.5 % (3.3-12.3); Neutrophils % 91.1 % (41.7-73.7); Platelets 228 thou/uL (152-406); RBC Red Blood Cell Count 3.84 M/uL (3.86-4.86); Red Cell Distribution Width 13.9 % (12.1-15.2)
[2024-03-19 07:01] LABS: Albumin 2.6 g/dL (3.4-5.0); Albumin/Globulin Ratio 0.7 (1.1-1.8); Anion Gap 7.2 mEq/L (5.0-15.0); Bilirubin Total 0.7 mg/dL (0.2-1.0); Globulin 3.5 g/dL (2.3-3.5); Magnesium 2.3 mg/dL (1.6-2.4); Potassium 4.2 mEq/L (3.5-5.1); Protein, Total 6.1 g/dL (6.4-8.2)
[2024-03-19 08:20] LABS: Platelet Estimate ADEQ; Platelets Clumped FEW; White Blood Cell Scan OK (OK)
[2024-03-19 08:21] LABS: Blood Morphology Comment NOT SEEN (NOT SEEN)
--- NOTE | 2024-03-19 11:56 | P.PN ---
Date of Service: 03/19/24 74 yrs old Female with past medical history of atrial fibrillation on Eliquis, GERD, hyperlipidemia who was brought to ER with complaints of abdominal pain and nausea and vomiting. Patient started having acute onset of epigastric pain right upper quadrant, sharp, 6 out of 10 in severity. Associated with nausea and vomiting. Pain was progressively getting worse. She used to have history of gallstones. Pain is similar to the biliary colic she used to have previously. Patient denies any fever or chills. Denies any chest pain. No history of diarrhea. No sick contacts. Subjective Continued nausea, pt states her pain started suddenly at 3pm yesterday at suprapubic area and then moved up to below bilateral breasts, continued nausea, denies chest pain. Review of Systems 10-point ROS is otherwise unremarkable Physical Examination - Vital Signs reviewed: no hypotension, no a. fib, afebrile - Physical Exam General: Alert, In no apparent distress, Oriented x3 HEENT: Atraumatic, Normocephalic Neck: Supple Respiratory: Clear to auscultation bilaterally, Normal air movement Cardiovascular: Regular rate/rhythm, Normal S1 S2 Capillary refill: <2 Seconds Gastrointestinal: W/out hepatosplenomegaly, Tenderness generalized, decreased bowel sounds with heartbeat auscultated in RUQ Musculoskeletal: No clubbing, No swelling Integumentary: No rashes Neurological: Normal speech, Normal strength at 5/5 x4 extr, Cranial nerves 3-12 intact, Normal reflexes 2+, Normal affect Lymphatics: No axilla or inguinal lymphadenopathy - Studies Laboratory Data (last 24 hrs) 03/17/24 03/17/24 18:26 18:26 WBC 17.70 H Hgb 14.2 Hct 43.1 Plt Count 282 Sodium 137 Potassium 4.1 BUN 15 Creatinine 0.86 Glucose 156 H Total Bilirubin 0.4 AST 18 ALT 28 Alkaline Phosphatase 123 H Lipase 23 Assessment and Plan - Plan Acute cholecystitis Leukocytosis Started on IV antibiotic - Zosyn CT findings noted Pain control - severe pain - given dilaudid Started on IV fluids Keep n.p.o. for now Surgery consulted _ Dr. Guevara to see - evaluated post cardiac clearance and took pt to OR last pm. + for gangrenous gallbladder 03/19/24 feeling much better, ambulatory no flatus yet, pt doing well clinically History of atrial fibrillation Will hold Eliquis for now Continues in NSR Will restart Eliquis tomorrow (03/20/24) NSTEMI (03/18/24) rec'd pt this am with repeat trop from normal to greater than 1465 repeat CBC shows marked leukocytosis from 17.7. to 27.5 CT from last pm without noted AA Repeat EKG (normal sinus last pm) stat - NSR LDH, Lactate, Blood cultures, and second PIV ordered stat Cardiology consultation/notification - Dr. Brown took pt to slab stripper, Coronary arteries clear 03/19/24 Heparin drip - d/c'd post LHC Will restart Eliquis tomorrow GI/DVT prophylaxis Advanced directive full code
[2024-03-19] MEDS: HYDROCODONE/APAP 5/325 MG TAB PO PRN (13:17)
[2024-03-19] MEDS: NA CHLORIDE 0.9% 0 ML ONE (16:22)
[2024-03-19] MEDS: ATORVASTATIN 40 MG TAB PO SCH (20:41)
[2024-03-20] MEDS ORDERED: APIXABAN 5 MG TABLET PO SCH (06:00)
[2024-03-20] MEDS: lisinopriL 5 MG TAB PO SCH (08:07)
[2024-03-20] MEDS: PROMETHAZINE INJ 25 MG/ML AMP IV ONE (08:07)
[2024-03-20] MEDS: APIXABAN 5 MG TABLET PO SCH (08:07)
--- NOTE | 2024-03-20 14:33 | P.PN ---
Date of Service: 03/20/24 74 yrs old Female with past medical history of atrial fibrillation on Eliquis, GERD, hyperlipidemia who was brought to ER with complaints of abdominal pain and nausea and vomiting. Patient started having acute onset of epigastric pain right upper quadrant, sharp, 6 out of 10 in severity. Associated with nausea and vomiting. Pain was progressively getting worse. She used to have history of gallstones. Pain is similar to the biliary colic she used to have previously. Patient denies any fever or chills. Denies any chest pain. No history of diarrhea. No sick contacts. Subjective Continued mild nausea, denies chest pain/shortness of breath. Mild oozing of blood from umbilical incision, positive clot at site Review of Systems 10-point ROS is otherwise unremarkable Physical Examination - Vital Signs reviewed: no hypotension, no a. fib, afebrile - Physical Exam General: Alert, In no apparent distress, Oriented x3 HEENT: Atraumatic, Normocephalic Neck: Supple Respiratory: Clear to auscultation bilaterally, Normal air movement Cardiovascular: Regular rate/rhythm, Normal S1 S2 Capillary refill: <2 Seconds Gastrointestinal: W/out hepatosplenomegaly, Tenderness generalized, positive flatus, hemal to umbilicus with mild oozing of blood, will use silver nitrate to control Musculoskeletal: No clubbing, No swelling Integumentary: No rashes Neurological: Normal speech, Normal strength at 5/5 x4 extr, Cranial nerves 3-12 intact, Normal reflexes 2+, Normal affect Lymphatics: No axilla or inguinal lymphadenopathy Assessment and Plan Acute cholecystitis Leukocytosis Started on IV antibiotic - Zosyn - 03/20/24 s/p cholecystectomy - zosyn to continue q8h x a couple more days Pain control - severe pain - given dilaudid advance diet Dr. Guevara - evaluated post cardiac clearance and took pt to OR last pm. + for gangrenous gallbladder 03/19/24 feeling much better, ambulatory no flatus yet, pt doing well clinically 03/20/24 mild nausea, scant bm, oozing at umbilical site. + clot viewed and removed. may need to apply silver nitrate to area History of atrial fibrillation Will hold Eliquis for now Continues in NSR Restarted Eliquis (03/20/24) NSTEMI (03/18/24) s/p LHC with normal coronaries GI/DVT prophylaxis Advanced directive full code
[2024-03-21 05:47] LABS: Absolute Basophils 0.1 K/uL (0-0.5); Absolute Lymphocytes (CBC) 1.7 K/uL (0.7-4.9); Absolute Monocytes 1.3 K/uL (0.1-1.3); Absolute Neutrophil 12.9 K/uL (1.8-8.0); Basophils % 0.4 % (0-1.3); Eosinophils % 0.2 % (0-4.4); Hematocrit 35.4 % (36.0-45.0); Hemoglobin 11.8 g/dL (12.0-15.0); Lymphocytes % 10.7 % (15.3-44.8); MCH 31.5 pg (27.0-35.0); MCHC 33.5 g/dL (32.0-36.0); MCV 94.2 fL (80-100); MPV 9.2 fL (7.6-11.3); Monocytes % 8.1 % (3.3-12.3); Neutrophils % 80.6 % (41.7-73.7); Nucleated Red Blood Cells % 0.1 % (0-0); Platelets 241 thou/uL (152-406); RBC Red Blood Cell Count 3.76 M/uL (3.86-4.86); Red Cell Distribution Width 13.4 % (12.1-15.2)
[2024-03-21] MEDS: HYDRALAZINE HCL 20 MG/ML VIAL IV PRN (05:52)
[2024-03-21 06:10] LABS: Albumin 2.3 g/dL (3.4-5.0); Albumin/Globulin Ratio 0.7 (1.1-1.8); Anion Gap 11.6 mEq/L (5.0-15.0); Bilirubin Total 0.7 mg/dL (0.2-1.0); Globulin 3.3 g/dL (2.3-3.5); Potassium 3.6 mEq/L (3.5-5.1); Protein, Total 5.6 g/dL (6.4-8.2)
--- NOTE | 2024-03-21 07:47 | P.PN ---
Subjective Date of Service: 03/21/24 Chief Complaint: Abdominal Pain This is a Tele-Medicine visit. Verbal consent was obtained prior to visit. She was seen on rounds today. She states that she continues to experience intermittent nausea, with one episode of vomiting yesterday. She states that her pain is well controlled. She denies any chest pain or palpitations. Review of Systems 10-point ROS is otherwise unremarkable General: Unremarkable Eyes: Unremarkable Respiratory: Unremarkable Cardiovascular: Unremarkable Gastrointestinal: Nausea, Vomiting, Abdominal Pain Neurological: Unremarkable Physical Examination - Vital Signs Temperature: 98 F Blood Pressure: 174/77 Pulse: 62 Respirations: 18 Pulse Ox (%): 94 - Physical Exam General: Alert, In no apparent distress, Oriented x3 HEENT: Atraumatic Respiratory: Other (no respiratory distress) Other Physical/Emotional Findings: Exam limited as this is a Tele-Medicine visit. Assessment And Plan - Plan # Cholelithiasis with Acute Gangrenous Cholecystitis - General Surgery (Dr. Guevara) consulted - recs appreciated - s/p laparoscopic cholecystectomy with intraoperative cholangiogram (03/19/2024) - Continue piperacillin-tazobactam - As needed pain control - Encouraged incentive spirometry # Type II NSTEMI ([place] Ischemia) due to above # Hypertensive Urgency # History of Atrial Fibrillation # Dyslipidemia - Serial troponin: 55.7 -> 1462.4 -> 987.7 - Cardiology (Dr. Brown) consulted - recs appreciated - s/p [facility] on 03/19/2024, with no evidence of obstructive coronary disease - Continue home lisinopril, atorvastatin, apixaban - Consider aspirin once cleared by Surgery - As needed anti-hypertensives for SBP > 160 mmHg - Telemetry # Bilateral Adrenal Lesions # Hepatic Steatosis # Splenic Lesion # Nephrolithiasis with Microscopic Hematuria - Incidentally noted on evaluation. - She was informed of these findings and advised to follow-up with her PCP for further evaluation (including oncologic evaluation). She verbalized understanding. Disposition: She appears clinically stable. Continue post-operative course per Surgery. Appreciate customer service and sales consultant recommendations. On-site physician (Dr. Mccall) will re-assess tomorrow and begin disposition planning. Sharif Matamoros M.D.
[2024-03-21] MEDS: POTASSIUM CL SA 10 MEQ TAB PO ONE (08:55)
[2024-03-21 23:31] VITALS: BMI 23.8
[2024-03-22 05:49] VITALS: O2SAT 97
[2024-03-22 06:27] LABS: Absolute Lymphocytes (CBC) 1.8 K/uL (0.7-4.9); Absolute Monocytes 1.4 K/uL (0.1-1.3); Absolute Neutrophil 11.4 K/uL (1.8-8.0); Basophils % 0.3 % (0-1.3); Eosinophils % 0.3 % (0-4.4); Hematocrit 36.3 % (36.0-45.0); Hemoglobin 12.2 g/dL (12.0-15.0); Lymphocytes % 12.2 % (15.3-44.8); MCH 31.4 pg (27.0-35.0); MCHC 33.6 g/dL (32.0-36.0); MCV 93.6 fL (80-100); MPV 8.5 fL (7.6-11.3); Monocytes % 9.6 % (3.3-12.3); Neutrophils % 77.6 % (41.7-73.7); Platelets 312 thou/uL (152-406); RBC Red Blood Cell Count 3.88 M/uL (3.86-4.86); Red Cell Distribution Width 13.3 % (12.1-15.2)
--- NOTE | 2024-03-22 15:14 | P.PN ---
Subjective Date of Service: 03/22/24 Chief Complaint: Status post lap honey Patient still feels nauseated some abdominal discomfort Review of Systems General: Weakness Gastrointestinal: Nausea Physical Examination - Vital Signs Temperature: 98.4 F Blood Pressure: 148/56 Pulse: 64 Respirations: 20 Pulse Ox (%): 96 - Physical Exam General: Alert, Oriented x3 Cardiovascular: No edema, Regular rate/rhythm Gastrointestinal: Hypoactive, Tenderness (Very minimal tenderness) Other Physical/Emotional Findings: Exam limited as this is a Tele-Medicine visit. Assessment And Plan - Current Problems (Diagnosis) (1) Cholecystitis Current Visit: Yes Status: Acute Plan: Patient is s/p left proximal laparoscopic cholecystectomy partial gangrenous gallbladder feels very nauseated and weak chemistries reviewed white count is declining resume famotidine has had a bowel movement will discharge a.m.
[2024-03-22] MEDS: FAMOTIDINE 20 MG TAB PO SCH (20:25)
--- NOTE | 2024-03-22 21:48 | P.DS ---
Admission Date: 03/17/24 Discharge Date: 03/23/24 Disposition: DC HOME/HOME HEALTH CARE Discharge Condition: GOOD Reason for Admission: Status post lap honey Brief History of Present Illness: 74 yrs old Female with past medical history of atrial fibrillation on Eliquis, GERD, hyperlipidemia who was brought to ER with complaints of abdominal pain and nausea and vomiting. Patient started having acute onset of epigastric pain right upper quadrant, sharp, 6 out of 10 in severity. Associated with nausea and vomiting. Pain was progressively getting worse. She used to have history of gallstones. Pain is similar to the biliary colic she used to have previously. Patient denies any fever or chills. Denies any chest pain. No history of diarrhea. No sick contacts. Patient was assessed in the ER and is admitted for further management of acute cholecystitis- Physical Exam General: Alert, In no apparent distress, Oriented x3 HEENT: Atraumatic, Normocephalic Neck: Supple Respiratory: Clear to auscultation bilaterally, Normal air movement Cardiovascular: Regular rate/rhythm, Normal S1 S2 Capillary refill: <2 Seconds Gastrointestinal: W/out hepatosplenomegaly, Tenderness Musculoskeletal: No clubbing, No swelling Integumentary: No rashes Neurological: Normal speech, Normal strength at 5/5 x4 extr, Cranial nerves 3-12 intact, Normal reflexes 2+, Normal affect Lymphatics: No axilla or inguinal lymphadenopathy Hospital Course: 74 yrs old Female with past medical history of atrial fibrillation on Eliquis, GERD, hyperlipidemia who was brought to ER with complaints of abdominal pain and nausea and vomiting. She was admitted for further management of acute cholecystitis She was seen by surgery she was noted to have Acute on chronic cholecystitis is status post status post 03/[address] Paredes , had noted elevated cardiac enzymes, was eval by Cardiology status post cardiac cath,with no obstruction noted, no intervention during procedure. , She is tolerating diet, stable to discharge home, follow up with PCP, Surgery, and cardiology after discharge. Discharge medications, PO antibiotcs, prn analgesics, prn stool sofftners, follow up with surgery after discharge. Assessment Acute on chronic cholecystitis with cholelithiasis (status post 03/[address] Paredes) with partial gangrene of the gallbladder Type II NSTEMI ([place]and Ischemia) -seen by cardiology, status post cardiac cath s/p [facility] on 03/19/2024, with no evidence of obstructive coronary disease by Dr Brown Hypertensive Urgency-improved, treated with as need antihypertensives History of Atrial Fibrillation-resume home eliqus, Dyslipidemia resume home meds after discharge Bilateral Adrenal Lesions-advised to follow-up with her PCP for further evaluation (including oncologic evaluation) Hepatic Steatosis Splenic Lesion Nephrolithiasis with Microscopic Hematuria-No hydronephrosis.No suspicious renal mass.Punctate stone lower pole right kidney -DC IV and DC home -Follow-up with PCP in 1 to 2 weeks -Follow-up with Cardiology/surgery in 1-2 weeks call office for apt -Please call Dr. Molina at [phone] if any questions regarding hospital stay -Please call nursing station at [phone] if any nursing or medication questions -Return to the emergency room if symptoms worsen Vital Signs/Physical Exam: Temp Pulse Resp BP Pulse Ox 98.2 F 60 20 144/64 H 96 03/22/24 16:00 03/22/24 16:00 03/22/24 17:00 03/22/24 16:00 03/22/24 17:00 Other Physical/Emotional Findings: Exam limited as this is a Tele-Medicine visit. Laboratory Data at Discharge: WBC 14.60 thou/uL (4.3-10.9) H 03/22/24 06:05 Hgb 12.2 g/dL (12.0-15.0) 03/22/24 06:05 Hct 36.3 % (36.0-45.0) 03/22/24 06:05 Plt Count 312 thou/uL (152-406) D 03/22/24 06:05 PT 13.3 SECONDS (9.4-12.5) H 03/18/24 08:34 INR 1.27 03/18/24 08:34 Sodium 136 mEq/L (136-145) 03/22/24 06:05 Potassium 4.0 mEq/L (3.5-5.1) 03/22/24 06:05 BUN 12 mg/dL (7-18) 03/22/24 06:05 Creatinine 0.47 mg/dL (0.55-1.02) L 03/22/24 06:05 Glucose 102 mg/dL (74-106) 03/22/24 06:05 Magnesium 2.3 mg/dL (1.6-2.4) 03/19/24 06:16 Total Bilirubin 0.7 mg/dL (0.2-1.0) 03/21/24 04:59 AST 19 U/L (15-37) 03/21/24 04:59 ALT 36 U/L (13-56) 03/21/24 04:59 Alkaline Phosphatase 92 U/L (45-117) 03/21/24 04:59 Lipase 23 U/L (13-75) 03/17/24 18:26 Home Medications: Apixaban [Eliquis] 5 mg PO BID 03/20/24 Atorvastatin Calcium 40 mg PO BEDTIME 03/20/24 Estradiol [Yuvafem] 1 appl VAG SEECOM 03/20/24 Famotidine 20 mg PO BEDTIME 03/20/24 Amox/Clavulanate [Augmentin 875-125 Tab] 1 each PO BID 7 Days #14 tab 03/23/24 Atorvastatin Calcium [Lipitor] 40 mg PO BEDTIME tab 03/23/24 Codeine/APAP [Tylenol W/Codeine #3 tab] 1 tab PO Q6HP PRN 5 Days #15 tab 03/23/24 lisinopriL [Prinivil*] 5 mg PO DAILY 30 Days #30 tab 03/23/24 New Medications: Amox/Clavulanate [Augmentin 875-125 Tab] 1 each PO BID 7 Days #14 tab lisinopriL [Prinivil*] 5 mg PO DAILY 30 Days #30 tab Codeine/APAP [Tylenol W/Codeine #3 tab] 1 tab PO Q6HP PRN 5 Days #15 tab PRN Reason: Pain Physician Discharge Instructions: ospital Course: 74 yrs old Female with past medical history of atrial fibrillation on Eliquis, GERD, hyperlipidemia who was brought to ER with complaints of abdominal pain and nausea and vomiting. She was admitted for further management of acute cholecystitis She was seen by surgery she was noted to have Acute on chronic cholecystitis is status post status post 03/[address] Paredes , had noted elevated cardiac enzymes, was eval by Cardiology status post cardiac cath,with no obstruction noted, no intervention during procedure. , She is tolerating diet, stable to discharge home, follow up with PCP, Surgery, and cardiology after discharge. Discharge medications, PO antibiotcs, prn analgesics, prn stool sofftners, follow up with surgery after discharge. Assessment Acute on chronic cholecystitis with cholelithiasis (status post 03/[address] Paredes) with partial gangrene of the gallbladder Type II NSTEMI ([place] Ischemia) -seen by cardiology, status post cardiac cath s/p [facility] on 03/19/2024, with no evidence of obstructive coronary disease by Dr Brown Hypertensive Urgency-improved, treated with as need antihypertensives History of Atrial Fibrillation-resume home eliqus, Dyslipidemia resume home meds after discharge Bilateral Adrenal Lesions-advised to follow-up with her PCP for further evaluation (including oncologic evaluation) Hepatic Steatosis Splenic Lesion Nephrolithiasis with Microscopic Hematuria-No hydronephrosis.No suspicious renal mass.Punctate stone lower pole right kidney -DC IV and DC home -Follow-up with PCP in 1 to 2 weeks -Follow-up with GI in 1-2 weeks -Please call Dr. Molina at [phone] if any questions regarding hospital stay -Please call nursing station at [phone] if any nursing or medication questions -Return to the emergency room if symptoms worsen Diet: AHA Activity: Fall precautions Followup: Daniel Brown MD [ACTIVE - CAN ADMIT] - 1-2 Weeks Feliciano Gueavra MD [ACTIVE - CAN ADMIT] - 1-2 Weeks PARMINDER PATEL JR [Primary Care Provider] - 1-2 Weeks Time spent managing pt's care (in minutes): 45
[2024-03-23 06:31] LABS: Absolute Eosinophils 0.1 K/uL (0-0.5); Absolute Monocytes 1.3 K/uL (0.1-1.3); Absolute Neutrophil 7.8 K/uL (1.8-8.0); Basophils % 0.4 % (0-1.3); Eosinophils % 1.1 % (0-4.4); Hematocrit 30.5 % (36.0-45.0); Hemoglobin 10.5 g/dL (12.0-15.0); Lymphocytes % 17.8 % (15.3-44.8); MCHC 34.5 g/dL (32.0-36.0); MCV 92.7 fL (80-100); MPV 8.6 fL (7.6-11.3); Monocytes % 11.4 % (3.3-12.3); Neutrophils % 69.3 % (41.7-73.7); Platelets 273 thou/uL (152-406); RBC Red Blood Cell Count 3.29 M/uL (3.86-4.86); Red Cell Distribution Width 13.2 % (12.1-15.2)
[2024-03-23 07:25] LABS: Anion Gap 7.5 mEq/L (5.0-15.0); Potassium 3.5 mEq/L (3.5-5.1)
[2024-03-23 08:56] LABS: Band Neutrophils 3 % (0-1); Blood Morphology Comment NOT SEEN (NOT SEEN); Differential Total Cells Count 100; Eosinophils 2 % (0-3); Lymphocytes 15 % (15-42); Metamyelocytes 2 % (0-0); Monocytes 10 % (0-10); Myelocytes 1 % (0-0); Platelet Estimate ADEQ; Segmented Neutrophils 67 % (40-80)
[2024-03-23 12:42] VITALS: BP 131/63; TEMP 98.3
--- NOTE | 2024-03-24 12:42 | EKG ---
Test Date: 2024-03-18 Test Time: 07:03:28 Junk Dealer: KARINE MEASUREMENT RESULTS: Intervals: Rate: 81 ME: 146 QRSD: 72 QT: 392 QTc: 455 [place]: P: 79 ME: 146 QRS: 56 T: 71 INTERPRETIVE STATEMENTS: Normal sinus rhythm with sinus arrhythmia Normal ECG Compared to ECG 03/17/2024 18:13:45 No significant changes Electronically Signed On 03-24-24 12:24:59 [employer] OFFICER by Daniel Brown
--- NOTE | 2024-03-24 12:42 | EKG ---
Test Date: 2024-03-17 Test Time: 18:13:45 Commodity Analyst: Talita WIGGINS MEASUREMENT RESULTS: Intervals: Rate: 62 CA: 148 QRSD: 80 QT: 436 QTc: 442 [place]: P: 68 CA: 148 QRS: 62 T: 55 INTERPRETIVE STATEMENTS: Normal sinus rhythm Normal ECG No previous ECG available for comparison Electronically Signed On 03-24-24 12:25:11 B[employer]WING MACHINE OPERATOR by Daniel Brown
== END 2024-03-23 12:48 | disposition home health service (06) | DRG 417 ==
LOC: ER 16:52 → ERHOLD 23:33 → 2ND 03-18 14:45
PROVIDERS: ADMIT Family Medicine; ATTEND Hospitalist
PROC: BF522Z0 Other Imaging of Gallbladder using Fluorescing Agent, Intraoperative (ICD-10-PCS; 2024-03-18)
PROC: B2111ZZ Fluoroscopy of Multiple Coronary Arteries using Low Osmolar Contrast (ICD-10-PCS; 2024-03-18)
PROC: B2151ZZ Fluoroscopy of Left Heart using Low Osmolar Contrast (ICD-10-PCS; 2024-03-18)
PROC: 4A023N7 Measurement of Cardiac Sampling and Pressure, Left Heart, Percutaneous Approach (ICD-10-PCS; 2024-03-18)
PROC: 0FT44ZZ Resection of Gallbladder, Percutaneous Endoscopic Approach (ICD-10-PCS; principal; 2024-03-18 15:30)
DX: K80.12 Calculus of gallbladder with acute and chronic cholecystitis without obstruction (principal); I21.A1 Myocardial infarction type 2; K82.A1 Gangrene of gallbladder in cholecystitis; I48.91 Unspecified atrial fibrillation; E78.00 Pure hypercholesterolemia, unspecified; K21.9 Gastro-esophageal reflux disease without esophagitis; I16.0 Hypertensive urgency; D73.89 Other diseases of spleen; K76.0 Fatty (change of) liver, not elsewhere classified; N20.0 Calculus of kidney; R31.29 Other microscopic hematuria; Z79.01 Long term (current) use of anticoagulants; Z79.899 Other long term (current) drug therapy
CPT/HCPCS: 36415; 71045; 74177; 74300; 76705; 76937; 80048; 80053; 81001; 83605; 83615; 83690; 83735; 84145; 84484; 85025; 85610; 87040; 88304; 93005; 93458; 94010; 96361; 96374; 96375; 99152; 99153; 99285; C1893; J0360; J0461; J1100; J1171; J1644; J2003; J2250; J2270; J2405; J2543; J2550; J2704; J3010; J7030; J7040; J7120; Q9967